=== PATIENT | female | born 1960 | race Two or more races ===

== ENCOUNTER 2025-05-15 12:57 | Inpatient (IN) | payer BC ==
[~2025-05-15] VITALS: Ht 165.1 cm; Wt 122.5 kg
[2025-05-15 13:30] LABS: BASOPHILS # (AUTO) 0.1 K/uL (0.0-0.2); BASOPHILS % (AUTO) 0.9 % (0.0-2.0); EOSINOPHILS # (AUTO) 0.1 K/uL (0.0-0.7); EOSINOPHILS % (AUTO) 1.6 % (0.0-6.0); HEMATOCRIT 47 % (33-45); HEMOGLOBIN 15.9 g/dL (11.5-14.8); LYMPHOCYTES # (AUTO) 1.5 K/uL (0.8-4.8); LYMPHOCYTES % (AUTO) 24.9 % (20.0-44.0); MEAN CORPUSCULAR HEMOGLOBIN 30 PG (26.0-33.0); MEAN CORPUSCULAR HGB CONC 34 g/dl (31.0-36.0); MEAN CORPUSCULAR VOLUME 88 fL (82-100); MONOCYTES # (AUTO) 0.4 K/uL (0.1-1.30); MONOCYTES % (AUTO) 6.7 % (2.0-12.0); NEUTROPHILS # (AUTO) 3.9 K/uL (1.8-8.9); NEUTROPHILS % (AUTO) 65.9 % (43.0-81.0); PLATELET COUNT (AUTO) 325 K/uL (150-450); RED BLOOD CELL COUNT(AUTO) 5.37 MIL/uL (4.0-5.2); RED CELL DISTRIBUTION WIDTH 14.1 % (11.5-15.0); WHITE BLOOD COUNT (AUTO) 5.9 K/uL (4.3-11.0)
[2025-05-15 13:41] LABS: CALCIUM, SERUM 9.4 mg/dL (8.5-10.1); CARBON DIOXIDE 23 mmol/L (21-32); CHLORIDE 106 mmol/L (98-107); CREATININE 0.9 mg/dL (0.6-1.3); GLUCOSE 123 mg/dL (74-106); POTASSIUM 4.2 mmol/L (3.5-5.1); SODIUM SERUM 141 mmol/L (136-145); UREA NITROGEN, BLOOD 12 mg/dL (7-18)
[2025-05-15] MEDS: IV NS 0.9% 500 ML BAG IV ONE (13:44)
[2025-05-15 13:51] LABS: D-DIMER 0.24 mg/L(FEU (0.17-0.50); INR 0.96 (0.91-1.10); PARTIAL THROMBOPLASTIN TIME 23.9 SEC (24.3-34.3); PROTHROMBIN TIME 10.2 SECS (9.2-11.1)
[2025-05-15] MEDS ORDERED: METOPROLOL SUCCINATE 25 MG TAB.SR.24H ONE (17:03)
[2025-05-15] MEDS: METOPROLOL SUCCINATE 50 MG TAB.SR.24H PO SCH (17:08)
[2025-05-15] MEDS ORDERED: Z GUARD REMEDY 4 OZ OINT TP PRN (17:30)
[2025-05-15] MEDS ORDERED: ACETAMINOPHEN 325 MG TABLET PO PRN (17:30)
[2025-05-15] MEDS ORDERED: IV LR 1000 ML 1,000 ML IV PRN (17:30)
[2025-05-15] MEDS ORDERED: ONDANSETRON HCL/PF 4 MG/2 ML VIAL IVP PRN (17:30)
[2025-05-15] MEDS ORDERED: MAGNESIUM HYDROXIDE 30 ML UDC PO PRN (17:30)
[2025-05-15 17:40] VITALS: BP 116/84; TEMP 98.1; O2SAT 96
[2025-05-15] MEDS: NITROGLYCERIN PACKET 1 GM PACKET TOP SCH (18:25)
[2025-05-15] MEDS ORDERED: METO-357 PO (18:55)
[2025-05-15] MEDS ORDERED: LEVO50TA8 PO (18:55)
[2025-05-15 20:00] VITALS: BP 134/66; TEMP 98.2; O2SAT 93
[2025-05-15] MEDS: ATORVASTATIN 40 MG TABLET PO SCH (21:54)
[2025-05-16] VITALS: BP 125/80; TEMP 98.2; O2SAT 96
[2025-05-16 04:00] VITALS: BP 118/64; TEMP 98.1; O2SAT 93
[2025-05-16 06:33] LABS: BASOPHILS # (AUTO) 0.1 K/uL (0.0-0.2); BASOPHILS % (AUTO) 0.8 % (0.0-2.0); EOSINOPHILS # (AUTO) 0.4 K/uL (0.0-0.7); EOSINOPHILS % (AUTO) 5.5 % (0.0-6.0); HEMATOCRIT 44 % (33-45); HEMOGLOBIN 14.5 g/dL (11.5-14.8); LYMPHOCYTES % (AUTO) 28.8 % (20.0-44.0); MEAN CORPUSCULAR HEMOGLOBIN 30 PG (26.0-33.0); MEAN CORPUSCULAR HGB CONC 33 g/dl (31.0-36.0); MEAN CORPUSCULAR VOLUME 89 fL (82-100); MONOCYTES # (AUTO) 0.7 K/uL (0.1-1.30); MONOCYTES % (AUTO) 9.5 % (2.0-12.0); NEUTROPHILS # (AUTO) 3.8 K/uL (1.8-8.9); NEUTROPHILS % (AUTO) 55.4 % (43.0-81.0); PLATELET COUNT (AUTO) 300 K/uL (150-450); RED BLOOD CELL COUNT(AUTO) 4.93 MIL/uL (4.0-5.2); WHITE BLOOD COUNT (AUTO) 6.9 K/uL (4.3-11.0)
[2025-05-16 07:23] LABS: CREATININE 0.7 mg/dL (0.6-1.3); MAGNESIUM 2.3 mg/dL (1.8-2.4); PHOSPHORUS 4.1 mg/dL (2.5-4.9); POTASSIUM 4.1 mmol/L (3.5-5.1)
[2025-05-16] MEDS: PANTOPRAZOLE 40 MG TABLET.DR PO SCH (07:52)
[2025-05-16 08:00] VITALS: BP 130/83; TEMP 98.8; O2SAT 94
[2025-05-16] MEDS: LEVOTHYROXINE SODIUM 50 MCG TABLET PO SCH (08:14)
[2025-05-16] MEDS: ASPIRIN EC 81 MG TABLET.DR PO SCH (08:14)
[2025-05-16] MEDS: METOPROLOL SUCCINATE 50 MG TAB.SR.24H PO SCH (08:14)
[2025-05-16 12:00] VITALS: BP 113/72; TEMP 98.1; O2SAT 95
[2025-05-16 16:00] VITALS: BP 127/75; TEMP 98.1; O2SAT 96
[2025-05-16 20:00] VITALS: BP 127/69; TEMP 97.9; O2SAT 95
[2025-05-16] MEDS ORDERED: IOHEXOL-350 100 ML VIAL IV ONE (20:31)
[2025-05-16] MEDS ORDERED: IV NS 0.9% 250 ML IV ONE (20:31)
[2025-05-17] VITALS: BP 137/79; TEMP 97.9; O2SAT 95
[2025-05-17 04:00] VITALS: BP 132/67; TEMP 97.9; O2SAT 96
[2025-05-17 12:00] VITALS: BP 114/73; TEMP 97.9; O2SAT 94
== END 2025-05-17 15:59 | disposition home or self-care (01) | DRG 206 ==
LOC: ER 13:19 → MEDSG1 17:08 → TELE1 17:36
PROVIDERS: ADMIT Nurse Practitioner Family; ATTEND Internal Medicine
DX: M94.0 Chondrocostal junction syndrome [Tietze] (principal); E78.5 Hyperlipidemia, unspecified; E03.9 Hypothyroidism, unspecified; I10 Essential (primary) hypertension; I49.3 Ventricular premature depolarization; R73.9 Hyperglycemia, unspecified; Z82.49 Family history of ischemic heart disease and other diseases of the circulatory system
CPT/HCPCS: 36415; 71045-TC; 74018; 75574; 80048-TC; 80061-TC; 83735-TC; 84100-TC; 84443-TC; 84484-TC; 85025-TC; 85378-TC; 85730-TC; 93307-TC; 97110-TC; 97116-TC; 97530-TC; G0378; J7040; J7050; J7120; Q9967